=== PATIENT | male | born 1965 | race Caucasian/White ===

== ENCOUNTER → 2020-01-25 09:10 | Outpatient (BNVA) | payer SELFPAY | PROVIDERS: Visit Provider Nurse Practitioner Family | DX: Z11.59 Encounter for screening for other viral diseases (principal) | CPT/HCPCS: 87635 ==

== ENCOUNTER 2021-04-15 10:58 | Outpatient (CLI) | payer BC, SELFPAY ==
--- NOTE | 2021-04-15 11:22 | XR_ITS ---
WS: [email or web address] Exam: XR sacroiliac jts m 3V [id number] Date/Time of Exam: 04/15/2021 11:23 AM Reason For Exam: L40.9 - Psoriasis, unspecified No fracture or dislocation. 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 The SI joints are open. XR/XR sacroiliac jts m 3V [id number] IMPRESSION: 1. Mild bilateral SI joint DJD.
--- NOTE | 2021-04-15 11:22 | XR_ITS ---
WS: [email or web address] Exam: XR foot LT 2V [id number] Date/Time of Exam: 04/15/2021 11:23 AM Reason For Exam: M25.50 - Pain in unspecified joint No fracture or dislocation. Mild degenerative changes in the midfoot joints and IP joints. No soft ti ssue foreign bodies. Prominent calcaneal spurs. Vascular calcifications about the foot and ankle. XR/XR foot LT 2V [id number] IMPRESSION: 1. Mild degenerative changes and calcaneal spurs. 2. No fracture or dislocation.
--- NOTE | 2021-04-15 11:22 | XR_ITS ---
WS: [email or web address] Exam: XR foot RT 2V [id number] Date/Time of Exam: 04/15/2021 11:23 AM Reason For Exam: M25.50 - Pain in unspecified joint No acute fracture or dislocation. Mild degenerative changes in the IP joints and midfoot joints. Larg e Achilles tendon posterior heel spur and small plantar heel spur. No soft tissue foreign bodies. Vascular calcifications about the ankle and foot. XR/XR foot RT 2V [id number] IMPRESSION: 1. Degenerative changes and calcaneal spurs. 2. No fracture or dislocation.
--- NOTE | 2021-04-15 11:22 | XR_ITS ---
WS: [email or web address] Exam: XR lumbar spine 2-3V* [id number] Date/Time of Exam: 04/15/2021 11:23 AM Reason For Exam: M25.50 - Pain in unspecified joint No fracture or dislocation. Disc spaces are relatively well maintained. Mild spondylosis. Mild facet DJD. SI joint DJD. A 2.9 cm laminated calcification seen in the upper right quadrant of the abdomen m ay represent a large gallstone. XR/XR lumbar spine 2-3V* [id number] IMPRESSION: 1. Mild to moderate degenerative changes of the lower lumbar spine. 2. No fracture or malalignment. 3. 2.9 cm laminated calcification in the upper right quadrant of the abdomen th at might represent a large gallstone. 2 additional smaller calcifications are s een somewhat more superior and lateral.
--- NOTE | 2021-04-15 11:22 | XR_ITS ---
WS: [email or web address] Exam: XR hand RT 2V [id number] Date/Time of Exam: 04/15/2021 11:23 AM Reason For Exam: M25.50 - Pain in unspecified joint No fracture or dislocation. Very minimal DJD of the IP joints. No soft tissue foreign bodies. XR/XR hand RT 2V [id number] IMPRESSION: 1. Minimal degenerative change. 2. No fracture.
--- NOTE | 2021-04-15 11:22 | XR_ITS ---
WS: [email or web address] Exam: XR hand LT 2V [id number] Date/Time of Exam: 04/15/2021 11:23 AM Reason For Exam: M25.50 - Pain in unspecified joint No fracture or dislocation. Very minimal DJD of the IP joints. A single small screw is seen in the do rsal margin of the proximal aspect of the middle phalanx of the index finger. There is associated sof t tissue swelling at this site. Remaining soft tissues are unremarkable. XR/XR hand LT 2V [id number] IMPRESSION: 1. Minimal degenerative changes in the IP joints. 2. Small metallic screw seen in the proximal aspect of the middle phalanx of th e index finger with associated soft tissue swelling.
[2021-04-15 12:32] LABS: Erythrocyte Sedimentation Rate 57 mm/hr (0-10)
[2021-04-15 12:42] LABS: C Reactive Protein 19.8 mg/L (0.0-4.9); Creatine Phosphokinase 103 U/L (39-308)
[2021-04-15 12:58] LABS: 25 Hydroxy Vitamin D 21 ng/mL (30-100)
[2021-04-15 13:02] LABS: Hepatitis B Core AB, Total Non-Reactive (Nonreactive); Hepatitis B Surface Antigen Non-Reactive (Nonreactive); Hepatitis C Virus Antibody Non-Reactive (Nonreactive)
[2021-04-18 14:19] LABS: Cyclic Citrullinated Peptide <16 UNITS
[2021-04-18 15:23] LABS: ANA SCREEN, IFA NEGATIVE (NEGATIVE)
[2021-04-19 15:23] LABS: CENTROMERE B ANTIBODY <1.0 NEG AI (<1.0 NEG); JO-1 ANTIBODY <1.0 NEG AI (<1.0 NEG); RNP ANTIBODY <1.0 NEG AI (<1.0 NEG); SCL-70 ANTIBODY <1.0 NEG AI (<1.0 NEG); SJOGREN'S ANTIBODY (SS-A) <1.0 NEG AI (<1.0 NEG); SM ANTIBODY <1.0 NEG AI (<1.0 NEG); SS-B <1.0 NEG AI (<1.0 NEG)
[2021-04-20 10:27] LABS: DNA AB (DS) CRITHIDIA,IFA NEGATIVE (NEGATIVE)
[2021-04-20 15:42] LABS: THYROID PEROXIDASE ANTIBODIES 2 IU/mL (<9)
== END 2021-04-15 10:59 | disposition home or self-care (01) ==
PROVIDERS: PCP Nurse Practitioner Family; Visit Provider Internal Medicine
DX: M25.50 Pain in unspecified joint (principal); L40.9 Psoriasis, unspecified; M77.32 Calcaneal spur, left foot; M77.31 Calcaneal spur, right foot; Z98.890 Other specified postprocedural states; K82.8 Other specified diseases of gallbladder; M46.1 Sacroiliitis, not elsewhere classified
CPT/HCPCS: 36415; 72100; 72202; 73120; 73620; 82306; 82550; 85651; 86140; 86160; 86162; 86200; 86235; 86255; 86376; 86704; 86803; 87340

== ENCOUNTER → 2021-07-29 10:24 | Outpatient (BNVA) | payer BC, SELFPAY | PROVIDERS: PCP Nurse Practitioner Family; Visit Provider Internal Medicine | DX: R79.89 Other specified abnormal findings of blood chemistry (principal); M54.50 Low back pain, unspecified; R79.82 Elevated C-reactive protein (CRP); M25.50 Pain in unspecified joint; Z79.899 Other long term (current) drug therapy; K80.20 Calculus of gallbladder without cholecystitis without obstruction; L60.9 Nail disorder, unspecified | CPT/HCPCS: 80053; 82728; 83516; 83540; 85025; 85651; 86140 ==

== ENCOUNTER 2021-08-04 05:51 | Day surgery (SDC) | payer BC, SELFPAY ==
[2021-08-02 10:23] VITALS: BMI 32.7
[2021-08-04 06:10] VITALS: BP 155/96; PULSE 75; RESP 18; TEMP 36.1; O2SAT 95
--- NOTE | 2021-08-04 06:36 | P.HP_ITS ---
Same Day Surgery H&P Indication for Procedure/HPI DATE OF PROCEDURE: August 04, 2021 CHIEF COMPLAINT/INDICATIONFOR SURGICAL PROCEDURE: Screening colonoscopy PREOP DIAGNOSIS: Screening colonoscopy PLANNED PROCEDURE: Operation Date: 08/04/21 07:00 Proposed Procedures p Colonoscopy 53592 / Z12.11 encounter for screening for malignant neiplasm(Not Applicable) - Kermit Disla MD This is a pleasant 55 referred to my practice for screening colonoscopy, never had a screening colonoscopy before and he denies any blood in stool or colon cancer. ROS All systems have been reviewed negative except as for the above or per problem list. Medications/Allergies* Home Medications Medication Instructions Recorded Confirmed Type glipizide 10 mg tablet 10 mg PO BID 01/24/20 08/02/21 History metformin 1,000 mg tablet 1,000 mg PO BID 01/24/20 08/02/21 History dapagliflozin 10 mg tablet 10 mg PO DAILY 04/15/21 08/02/21 History (Farxiga) lisinopril 20 mg tablet 20 mg PO DAILY 04/15/21 08/02/21 History Allergies/Adverse Reactions Allergy/AdvReac Type Severity Reaction Status Date / Time No Known Allergies Allergy Verified 08/04/21 06:37 Pertinent History/Comorbid Conditions* Family History (Updated 04/15/21 @ 09:59 by Alexandra Reyes LPN) Rheumatoid arthritis Unknown Diabetes Father Brother CAD (coronary artery disease) Mother Heart attack Mother Grandfather Hypertension Mother Stroke Mother Denies family history of Lupus Dementia Hyperlipidemia Social History Smoking and tobacco status: never smoked Alcohol intake: never History of recent travel: No Pertinent Exam Findings alert, oriented x 3, clear to auscultation bilaterally, regular rate & rhythm and procedure specific exam findings (Abdominal examination nontender nondistended soft) Recommendations Surgery/Procedure today (Screening colonoscopy) Other Plans: Plan of care; After thorough history and physical examination and reviewing the chart, plan to perform screening colonoscopy. I discussed with the patient in details the risks,benefits,alternatives and indications.The risk of aspiration, bleeding, soft tissue injury, perforation of the colon and other potential concomitant complications were explained to the patient in details,also the potential need for Laproscoy/Laparotomy to repair any related complications including but not limited to colectomy and or Closotomy.The patient understood this well and did agree to proceed. Rationale was carefully and clearly discussed with the patient.Appropriate informed consent have been reviewed and signed All questions have been answered and all concerns have been addressed to patient's satisfaction. Verbal and written Instructions were given to the patient for colonoscopy prep Coding Level of Care Code Acute Labor Relations Director for Jessica Perrin
[2021-08-04] MEDS: sodium chloride 0.9% 1,000 ML 30 ML IV (06:37)
--- NOTE | 2021-08-04 06:41 | ANES.PREANE2 ---
Documented by User: Chelly Ybarra CRNA 08/04/21 06:42 Pre-Anesthetic Assessment Height/Weight: Height 1.88 m Weight 115.666 kg Temp Pulse Resp BP Pulse Ox 97 F L 75 18 155/96 95 08/04/21 06:10 08/04/21 06:10 08/04/21 06:10 08/04/21 06:10 08/04/21 06:10 Preop Diagnosis: Screening colonoscopy Operation Date: 08/04/21 07:00 Proposed Procedures p Colonoscopy 45303 / Z12.11 encounter for screening for malignant neiplasm(Not Applicable) - Kermit Disla MD Familial anesthetic complications: none Was Beta Richa taken within 24 hours: N/A Was Clonidine taken within 24 hours: N/A Last intake: Intake Last Liquid Date 08/03/21 Last Liquid Time 21:00 Last Solid Date 08/02/21 Last Solid Time 20:00 Social No alcohol and No tobacco Exam alert, oriented x 3, clear to auscultation bilaterally and regular rate & rhythm Airway Submandibular: within normal limits Cervical ROM: within normal limits Dentition: full History/ROS No significant history except as noted CV/HEM Hypertension Anesthetic Plan ASA status: 2 Anesthesia: Anesthesia Evaluation and MAC Risk of > 500 ml blood loss (7ml/kg in children): No Medications/Allergies Home Medications Medication Instructions Recorded Confirmed Last Taken Type glipizide 10 mg tablet 10 mg PO BID 01/24/20 08/02/21 08/03/21 History metformin 1,000 mg tablet 1,000 mg PO BID 01/24/20 08/02/21 08/03/21 History dapagliflozin 10 mg tablet 10 mg PO DAILY 04/15/21 08/02/21 08/03/21 History (Farxiga) lisinopril 20 mg tablet 20 mg PO DAILY 04/15/21 08/02/21 08/03/21 History cholecalciferol (vitamin D3) 1,250 50,000 unit PO .qweek #14 cap 05/13/21 08/04/21 07/29/21 Rx mcg (50,000 unit) capsule prednisone 5 mg tablet See Rx Instructions PO DAILY #60 05/13/21 08/02/21 08/03/21 Rx tab Allergies Allergy/AdvReac Type Severity Reaction Status Date / Time No Known Allergies Allergy Verified 08/04/21 06:37 Current Medications Generic Name Dose Route Start Last Admin Trade Name Lex PRN Reason Stop Dose Admin Sodium Chloride 1,000 mls @ 30 mls/hr 08/04/21 06:00 08/04/21 06:37 Sodium Chloride 0.9% IV 08/05/21 05:59 30 mls/hr .Q24H MICHOACANO Administration PFSH Anesthesia Family History (Updated 04/15/21 @ 09:59 by Alexandra Reyes LPN) Mother Hypertension Stroke CAD (coronary artery disease) Heart attack Father Diabetes Brother Diabetes Grandfather Heart attack Unknown Rheumatoid arthritis Denies family history of Lupus Dementia Hyperlipidemia Social History Smoking and tobacco status: never smoked Alcohol intake: never History of recent travel: No Data Anesthesia Cardiac Studies: No Data to Display
--- NOTE | 2021-08-04 07:20 | ANE.PACU2 ---
Documented by User: Chelly Ybarra CRNA 08/04/21 07:21 Inpatient post-anesthesia follow up: Airway intact: Yes Vital signs: Temperature 97 F Pulse Rate 75 Respiratory Rate 18 Blood Pressure 155/96 Pulse Oximetry 95 Oxygen Delivery Me thod Room Air Oxygen Flow Rate Fraction of Inspir ed Oxygen Hydration adequate: Yes Nausea and vomiting: No Pain level: 1 Mental status: Baseline
[2021-08-04 07:30] VITALS: BP 135/81; PULSE 69; RESP 18; O2SAT 92
== END 2021-08-04 07:32 | disposition home or self-care (01) ==
PROVIDERS: PCP Nurse Practitioner Family; Visit Provider Surgery
PROC: 0DJD8ZZ Inspection of Lower Intestinal Tract, Via Natural or Artificial Opening Endoscopic (ICD-10-PCS; CPT 45378; principal; 2021-08-04 07:00)
DX: Z12.11 Encounter for screening for malignant neoplasm of colon (principal); D12.2 Benign neoplasm of ascending colon; K57.30 Diverticulosis of large intestine without perforation or abscess without bleeding; I10 Essential (primary) hypertension
CPT/HCPCS: 45385; 88305; J2704; J7030

== ENCOUNTER → 2021-12-09 11:33 | Outpatient (BNVA) | payer BC, SELFPAY | PROVIDERS: PCP Nurse Practitioner Family; Visit Provider Internal Medicine | DX: M25.50 Pain in unspecified joint (principal); R79.82 Elevated C-reactive protein (CRP); Z79.899 Other long term (current) drug therapy; M54.50 Low back pain, unspecified; R79.89 Other specified abnormal findings of blood chemistry | CPT/HCPCS: 80053; 85025; 85651; 86140 ==

== ENCOUNTER → 2022-05-15 08:59 | Outpatient (BNVA) | payer BC, SELFPAY | PROVIDERS: PCP Nurse Practitioner Family; Visit Provider Nurse Practitioner Family | DX: M25.551 Pain in right hip (principal) | CPT/HCPCS: 73502 ==

== ENCOUNTER 2022-05-20 07:14 | Emergency (ER) | payer BC, SELFPAY ==
[2022-05-20 07:23] VITALS: BP 178/81; PULSE 95; TEMP 36.7; O2SAT 95; BMI 33.9
--- NOTE | 2022-05-20 07:39 | XRR_ITS ---
PROCEDURE INFORMATION: Exam: XR Chest Exam date and time: 05/20/2022 7:47 AM Age: 56 years old Clinical indication: Dyspnea TECHNIQUE: Imaging protocol: Radiologic exam of the chest. Views: 1 view. Total images: 911 COMPARISON: No relevant prior studies available. FINDINGS: Lungs: Unremarkable. No consolidation. Pleural spaces: There is blunting of the right costophrenic angle, likely indicating a small pleural effusion versus chronic pleural thickening. Heart/Mediastinum: Upper normal heart size noted. Bones/joints: Unremarkable. XR/XR chest 1V portable [id number] IMPRESSION: There is blunting of the right costophrenic angle, likely indicating a small pleural effusion versus chronic pleural thickening.
--- NOTE | 2022-05-20 07:40 | ECG_ITS ---
[facility] Test Date: 2022-05-20 Pat Name: Luigi Henriquez Department: Room: Gender: Male Terrazzo Roller: : 1965 Requested By: Derick Andujar Order Number: [id number] Zoraida MD: Ketan Fontenot M.D. Measurements Intervals [place] Rate: 96 P: 53 CO: 146 QRS: 50 QRSD: 80 T: 89 QT: 348 QTc: 441 Interpretive Statements SINUS RHYTHM NONSPECIFIC T-WAVE ABNORMALITY No previous ECG available for comparison Electronically Signed On 05-20-2022 12:14:49 COOKER SYRUP by Ketan Fontenot M.D. [id number]
--- NOTE | 2022-05-20 07:47 | W.ED.SOB ---
HPI - SOB/Dyspnea General: Chief Complaint: Shortness of Breath/Dyspnea Stated Complaint: Abnormal Labs, SOB Time Seen by Provider: 05/20/22 07:23 Source: patient Mode of arrival: ambulatory Limitations: no limitations History of Present Illness: HPI Narrative: 56-year-old male non-smoker with a history of inflammatory arthritis, diabetes, hypertension who presents to the emergency department for gradual worsening of shortness of breath over the last week or 2. He does endorse dyspnea with minimal exertion as well as orthopnea. He is not diagnosed with any congestive heart failure, coronary artery disease, pulmonary embolism, pulmonary fibrosis, COPD or asthma, or other cardiopulmonary disease. He reports that he went to his doctor earlier in the week and they have scheduled him for AN echocardiogram. They advised him if he felt like he was getting worse to come into the emergency department. Patient reports he is now winded just tying his shoes. He denies any fever, hemoptysis, lower extremity swelling, chest pain. He does have pain in his left shoulder blade region which feels like a muscle cramp. He does have a family history of coronary artery disease. He has not recently had any stress test or angiography. No fever, chills, nausea, vomiting, diaphoresis, palpitations. Associated symptoms: Deny abdominal pain, chest congestion, chest pain, extremity pain, fever(s), hemoptysis, nausea, syncope or vomiting Review of Systems General: Reports: 10 or more systems reviewed and unremarkable except in HPI and below Const: Reports: fatigue; Denies: fever(s), chills or body aches Eyes: Denies: change in vision ENMT: Denies: throat pain Card: Denies: chest pain, edema or syncope Resp: Reports: dyspnea; Denies: productive cough, wheezing, stridor, pain on inspiration, hemoptysis or chest congestion GI: Denies: abdominal pain, nausea, vomiting or diarrhea : Denies: flank pain, dysuria or urinary frequency Musc: Denies: neck pain, back pain, extremity pain or extremity swelling Skin/Breast: Denies: rash or erythema Neuro: Denies: headache(s), numbness in extremities, weakness in extremities, lack of coordination or difficulty walking [facility] ED PFSH: Family History Mother Hypertension Stroke CAD (coronary artery disease) Heart attack Father Diabetes Brother Diabetes Grandfather Heart attack Unknown Rheumatoid arthritis Denies family history of Lupus Dementia Hyperlipidemia Social History Smoking and tobacco status: never smoked Alcohol intake: never Physical Exam Const: COMMON NORMALS: no limitations, alert and well nourished EXAM LIMITATIONS: no altered mental status and no behavioral limitations NUTRITIONAL APPEARANCE: obese HENMT: COMMON NORMALS: normocephalic, atraumatic and external ears normal HEAD & SCALP: normocephalic and atraumatic EXTERNAL EAR: Yes external ears normal MOUTH: no muffled voice Eye: COMMON NORMALS: EOMs intact bilaterally, conjunctivae normal and no scleral icterus CONJUNCTIVA: Yes conjunctivae normal Neck/C-Spine: COMMON NORMALS: no JVD GENERAL: Yes normal visual inspection and Yes trachea midline Resp: COMMON NORMALS: No retractions and clear to auscultation bilaterally EFFORT & INSPECTION: Yes able to speak in complete sentences, Yes tachypneic, Yes respiratory distress (Mild), No retractions, No uses accessory muscles, No audible wheezes, No tracheal deviation and No tripod positioning AUSCULTATION: clear to auscultation bilaterally, no crackles and no rales Cardio: COMMON NORMALS: no JVD, regular rate and regular rhythm; negative for No murmurs present (Cardio) (Murmur is present, loudest at the right sternal border) RATE: regular rate RHYTHM: regular rhythm GI: COMMON NORMALS: Soft to palpation and non-tender PALPATION: Yes Soft to palpation and No Guarding due to palpation present (GI) Extremity: COMMON NORMALS: normal to inspection Neuro: COMMON NORMALS: moves all extremities, no focal motor deficits and no sensory deficits noted SENSORIUM/ORIENTATION: Yes alert SPEECH: speech normal Psych: COMMON NORMALS: mental status grossly normal, Normal thought process present, cooperative, normal affect and speech normal SPEECH: Yes normal speech THOUGHT PROCESS: Normal thought process present Skin: COMMON NORMALS: no rashes or lesions noted, turgor normal and no jaundice GENERAL SKIN EXAM: no rashes or lesions noted and turgor normal Course Vital Signs: Vital signs: Vital Signs Temperature 98.1 F 05/20/22 07:23 Pulse Rate 87 05/20/22 09:29 Respiratory Rate 26 H 05/20/22 09:29 Blood Pressure 162/82 05/20/22 09:29 Pulse Oximetry 93 05/20/22 09:29 Oxygen Delivery Me thod 05/20/22 08:54 MDM - SOB/Dyspnea Medical Decision Making 56-year-old male presents the emergency department with shortness of breath. He is noted to be hypertensive and tachypneic. His oxygen saturation is around 94% on room air. His lungs are clear to auscultation. There is a large differential diagnosis but I suspect with the presence of a murmur, family history, orthopnea, hypertension, and gradual onset that the patient has some form of congestive heart failure. He looks like he would be a set up for obstructive sleep apnea and this alone could drive up his pulmonary artery pressures. He is already taken his lisinopril this morning but remains hypertensive. Patient will get 1 inch of nitroglycerin paste on his chest and 10 mg of IV hydralazine to decrease preload. He does not have any obvious lower extremity edema but he has thin shiny skin of both lower extremities with a very disproportionate amount of abdominal obesity. Pulmonary embolism is possible but seems less likely. D-dimer has been ordered. Acute coronary syndrome or ischemic coronary artery disease remains on the differential diagnosis. UPDATE: [id number] I'm discussing the patient's abnormal CT chest findings with Dr Corea, Oncology. We discussed presentation. He's reviewing the CT scan. He reports that he will speak with Dr Rainey (human factors specialist) to figure out if how they can get tissue diagnosis/biopsy and then plan care. Patient isn't requiring oxygen or admission I did discuss the case with patient. He is aware of the CT findings (multiple). He's aware this is likely cancer. He's aware he needs tissue diagnosis. He's aware Dr Corea/Brigid are going to consult on case. He does not want any pain medication beyond nsaids/tylenol. He is being prescribed hydralazine to use prn for htn at home. Lab Data 05/20/22 07:40 05/20/22 07:40 Labs/Radiology: Radiology Impressions Chest X-Ray 05/20/22 07:39 IMPRESSION: There is blunting of the right costophrenic angle, likely indicating a small pleural effusion versus chronic pleural thickening. Chest CTA 05/20/22 08:21 IMPRESSION: 1. 6.1 cm indeterminate mass of the right adrenal gland. Nonemergent unenhanced CT or MR abdomen could further evaluate. Given additional findings within the chest, findings concerning for neoplasm/metastatic disease. 2. Small right pleural effusion with compressive atelectasis. 3. No pulmonary artery embolism identified. 4. Multiple bilateral pulmonary nodules with the largest posteriorly at the right lung base series 7, image 374 measuring 10 mm concerning for pulmonary metastases. 5. Cardiomegaly with pulmonary vascular congestion. 6. Expansile destructive right 3rd rib mass with large soft tissue component measuring 5.3 x 5.2 x 6.6 cm concerning for neoplasm/metastatic deposit. No additional osseous lesions detected. Finding accounts for density in right superior pleural space on chest x-ray. 7. Multiple mildly prominent mediastinal lymph nodes. The largest is in the right paratracheal space measured at 11 mm in short axis diameter. 8. Cholelithiasis is present without cholecystitis. No gallbladder wall thickening or pericholecystic fluid collection. Laboratory Results WBC 8.5 10^3/uL (4.0-10.0) 05/20/22 07:40 RBC 5.18 10^6/uL (4.1-5.3) 05/20/22 07:40 Hgb 13.5 g/dL (11.7-16.6) 05/20/22 07:40 Hct 42.7 % (42.0-52.0) 05/20/22 07:40 MCV 82.4 fl (80-94) 05/20/22 07:40 MCH 26.1 pg (28.0-34.0) L 05/20/22 07:40 MCHC 31.6 g/dL (30.0-36.0) 05/20/22 07:40 RDW 15.0 % (12.1-15.1) 05/20/22 07:40 Plt Count 195 10^3/cmm (130-400) 05/20/22 07:40 MPV 11.1 fL (7.4-10.4) H 05/20/22 07:40 Neut % (Auto) 70.3 % 05/20/22 07:40 Lymph % (Auto) 17.3 % 05/20/22 07:40 [place] % (Auto) 9.0 % 05/20/22 07:40 Eos % (Auto) 2.7 % 05/20/22 07:40 Baso % (Auto) 0.5 % 05/20/22 07:40 Neut # (Auto) 6.00 10^3/uL (1.8-7.7) 05/20/22 07:40 Lymph # (Auto) 1.5 10^3/uL (0.8-4.8) 05/20/22 07:40 [place] # (Auto) 0.8 10^3/uL (0.2-0.9) 05/20/22 07:40 Eos # (Auto) 0.2 10^3/uL (0.0-0.8) 05/20/22 07:40 Baso # (Auto) 0.0 10^3/uL (0.0-0.1) 05/20/22 07:40 Nucleated RBC % (auto) 0 % 05/20/22 07:40 Nucleated RBCs # 0.0 /100WBC 05/20/22 07:40 D-Dimer 1.19 ug/mIFEU (0-0.59) H 05/20/22 07:40 Sodium 136 mmol/L (136-145) 05/20/22 07:40 Potassium 3.9 mmol/L (3.5-5.1) 05/20/22 07:40 Chloride 100 mmol/L (98-107) 05/20/22 07:40 Carbon Dioxide 24 mmol/L (22-29) 05/20/22 07:40 Anion Gap 15.9 (5-19) 05/20/22 07:40 BUN 14 mg/dL (6-20) 05/20/22 07:40 Creatinine 0.7 mg/dL (0.7-1.2) 05/20/22 07:40 GFR Calculation 115.8 mL/min (90-130) 05/20/22 07:40 Glucose 211 mg/dL (65-115) H 05/20/22 07:40 Calculated Osmolality 289 mOsm/kg (285-295) 05/20/22 07:40 Calcium 9.3 mg/dL (8.5-10.5) 05/20/22 07:40 Magnesium 2.0 mg/dL (1.7-2.3) 05/20/22 07:40 Total Bilirubin 0.8 mg/dL (0.15-1.2) 05/20/22 07:40 AST 32 U/L (0-40) 05/20/22 07:40 ALT 23 U/L (0-41) 05/20/22 07:40 Alkaline Phosphatase 127 U/L (40-130) 05/20/22 07:40 Troponin T Baseline 15 ng/L (0-15) 05/20/22 07:40 NT-Pro-B Natriuret Pep 449 pg/mL (0-125) H 05/20/22 07:40 Total Protein 7.1 g/dL (6.6-8.7) 05/20/22 07:40 Albumin 4.0 g/dL (3.5-5.2) 05/20/22 07:40 Globulin 3.1 g/dL (1.3-4.6) 05/20/22 07:40 Imaging Data CXR: My impression: mild cardiomegaly, right costophrenic angle is not seen sharply--could be pleural thickening, effusion, other. No consolidations. No sig pulm edema. No suspicious adenopathy noted. CT Chest: Radiologist's impression: Multiple bilateral pulmonary nodules with the largest posteriorly at the right lung base series 7, image 374 measuring 10 mm concerning for pulmonary metastases. Pleural spaces: Small right pleural effusion. Heart: Cardiomegaly. Lymph nodes: Multiple mildly prominent mediastinal lymph nodes. The largest is in the right paratracheal space measured at 11 mm in short axis diameter. Gallbladder and bile ducts: Cholelithiasis is present without cholecystitis. No gallbladder wall thickening or pericholecystic fluid collection. Adrenal glands: 6.1 cm indeterminate mass of the right adrenal gland. Bones/joints: Mild degenerative changes of the right shoulder are noted. Spinal degenerative changes are evident. Expansile destructive right 3rd rib mass with large soft tissue component measuring 5.3 x 5.2 x 6.6 cm concerning for neoplasm/metastatic deposit. No additional osseous lesions detected. Finding accounts for density in right superior pleural space on chest x-ray. EKG Data EKG 1: Interpretation: Sinus rhythm, rate 96, normal axis, normal intervals, no concerning ST segment elevations or depressions, possible mild left atrial enlargement. Discharge Plan Discharge Patient Disposition: Home Clinical Impression: Tumor, Adrenal mass, Acute dyspnea, Heart murmur, Pleural effusion, Hilar adenopathy, Accelerated hypertension Condition: Stable Prescriptions: New hydralazine 50 mg tablet 50 mg PO TID PRN (Reason: hypertension) Qty: 30 0RF Rx Instructions: Take up to three times daily as needed for Systolic blood pressure >150mmHg Continued Farxiga 10 mg tablet 10 mg PO DAILY lisinopril 20 mg tablet 20 mg PO DAILY metformin 1,000 mg tablet 1,000 mg PO BID glipizide 10 mg tablet 10 mg PO BID cholecalciferol (vitamin D3) 1,250 mcg (50,000 unit) capsule 50,000 unit PO .qweek Qty: 14 0RF albuterol sulfate 2.5 mg/0.5 mL solution for nebulization 2.5 mg inhalation ONCE Qty: 1 0RF albuterol sulfate 90 mcg/actuation HFA aerosol inhaler 2 puff inhalation Q6H Qty: 8.5 0RF Rx Instructions: 2 puffs inhaled every 6 hours as needed diclofenac sodium 1 % gel 2 g topical QID Qty: 100 2RF Rx Instructions: apply to affected area as needed folic acid 1 mg tablet 1 mg PO DAILY Qty: 30 3RF Discontinued azithromycin 250 mg tablet See Rx Instructions PO .COMPLEX Qty: 6 0RF Rx Instructions: For 250 mg dose pack: take 500 mg today (day 1), then 250 mg for 4 days (days 2-5) PO methotrexate sodium 2.5 mg tablet 10 mg PO .Q7days Qty: 20 1RF Rx Instructions: take 4 tabs on same day once a week. Discharge Orders: Discharge ED (Routine); Ordered 05/20/22 Ordered By: Derick Andujar Referrals: CarlitorMontez MD [Physician] - 4-7 days (Needs tissue biopsy, may need directional bronch. Please discuss with Dr Corea) Rigoberto Corea MD [Hospitalist] - 1-3 days (New tumor, pulm nodule, adrenal mass) Deysi Florez [Primary Care Provider] - 4-7 days (Mr Henriquez is found to have tumor, adenopathy, pulmonary nodules, adrenal mass. F/u Dr Corea) Discharge Diet: Advance as tolerated Discharge Activity: Resume usual activity Patient Instructions: Shortness of Breath (ED), Cancer Staging and Grading Activity Restrictions/Additional Instructions: Return if worsening, coughing up blood, severe fatigue, low or high blood pressure, oxygen level less than 92% at rest. Call Dr Corea on Sunday afternoon if you haven't heard from him. Please call your primary care doctor and let them know what we found. I have sent a copy of your chart. Coding Level of Care Code ED Occupational Therapist Assistants for Jessica Perrin
[2022-05-20 07:51] LABS: Basophils % 0.5 %; Eosinophils # 0.2 10^3/uL (0.0-0.8); Eosinophils % 2.7 %; Hematocrit 42.7 % (42.0-52.0); Hemoglobin 13.5 g/dL (11.7-16.6); Lymphocytes # 1.5 10^3/uL (0.8-4.8); Lymphocytes % 17.3 %; Mean Corpuscular HGB Conc 31.6 g/dL (30.0-36.0); Mean Corpuscular Hemoglobin 26.1 pg (28.0-34.0); Mean Corpuscular Volume 82.4 fl (80-94); Mean Platelet Volume 11.1 fL (7.4-10.4); Monocytes # 0.8 10^3/uL (0.2-0.9); Neutrophils % 70.3 %; Nucleated Red Blood Cells % 0 %; Platelet Count 195 10^3/cmm (130-400); Red Blood Count 5.18 10^6/uL (4.1-5.3); White Blood Count 8.5 10^3/uL (4.0-10.0)
[2022-05-20] MEDS: hyDRALAzine 20 mg/mL INJ 1 mL 10 MG IVP (07:53)
[2022-05-20] MEDS: nitroglycerin 1 gm/inch oint Pkt 1 INCH TOPICAL (07:54)
[2022-05-20 07:59] VITALS: BP 180/84; PULSE 92; RESP 25; O2SAT 93
[2022-05-20 08:05] LABS: D Dimer 1.19 ug/mIFEU (0-0.59)
[2022-05-20 08:14] LABS: Troponin(5th) Baseline 15 ng/L (0-15)
--- NOTE | 2022-05-20 08:21 | CTR_ITS ---
PROCEDURE INFORMATION: Exam: CTA Chest With Contrast Exam date and time: 05/20/2022 8:35 AM Age: 56 years old Clinical indication: Other: Left thoracic back pain, shortness of breath, elevated d dim TECHNIQUE: Imaging protocol: Computed tomographic angiography of the chest with contrast. 3D rendering (Not supervised by radiologist): MIP and/or 3D reconstructed images were created by the technologist. Total images: 0 Radiation optimization: All CT scans at this facility use at least one of these dose optimization techniques: automated exposure control; mA and/or kV adjustment per patient size (includes targeted exams where dose is matched to clinical indication); or iterative reconstruction. Contrast material: OMNI 350; Contrast volume: 100 ml; Contrast route: INTRAVENOUS (IV); REPORTING DATA: Count of CT and Cardiac NM exams in prior 12 months: This patient has received 0 known CTs and 0 known cardiac nuclear medicine studies in the 12 months prior to the current study. COMPARISON: CR (CHEST, ) 05/20/2022 7:47 AM RADIATION DOSE METRICS: Total DLP (mGy-cm): 559.92 FINDINGS: Pulmonary arteries: Pulmonary artery evaluation of good technical quality with no pulmonary artery embolism identified. Pulmonary vascular congestion. Aorta: Unremarkable. No aortic aneurysm. No aortic dissection. Thyroid: There is diffuse enlargement of the thyroid gland, most likely due to goiter. Lungs: Compressive atelectasis of the right lung base. Multiple bilateral pulmonary nodules with the largest posteriorly at the right lung base series 7, image 374 measuring 10 mm concerning for pulmonary metastases. Pleural spaces: Small right pleural effusion. Heart: Cardiomegaly. Lymph nodes: Multiple mildly prominent mediastinal lymph nodes. The largest is in the right paratracheal space measured at 11 mm in short axis diameter. Gallbladder and bile ducts: Cholelithiasis is present without cholecystitis. No gallbladder wall thickening or pericholecystic fluid collection. Adrenal glands: 6.1 cm indeterminate mass of the right adrenal gland. Bones/joints: Mild degenerative changes of the right shoulder are noted. Spinal degenerative changes are evident. Expansile destructive right 3rd rib mass with large soft tissue component measuring 5.3 x 5.2 x 6.6 cm concerning for neoplasm/metastatic deposit. No additional osseous lesions detected. Finding accounts for density in right superior pleural space on chest x-ray. Soft tissues: See Bones/joints finding. Other findings: Fleischner follow up recommendations for incidental nodules are not indicated. Follow up per patient's medical condition. CT/CT angio chest PE protcl [id number] IMPRESSION: 1. 6.1 cm indeterminate mass of the right adrenal gland. Nonemergent unenhanced CT or MR abdomen could further evaluate. Given additional findings within the chest, findings concerning for neoplasm/metastatic disease. 2. Small right pleural effusion with compressive atelectasis. 3. No pulmonary artery embolism identified. 4. Multiple bilateral pulmonary nodules with the largest posteriorly at the right lung base series 7, image 374 measuring 10 mm concerning for pulmonary metastases. 5. Cardiomegaly with pulmonary vascular congestion. 6. Expansile destructive right 3rd rib mass with large soft tissue component measuring 5.3 x 5.2 x 6.6 cm concerning for neoplasm/metastatic deposit. No additional osseous lesions detected. Finding accounts for density in right superior pleural space on chest x-ray. 7. Multiple mildly prominent mediastinal lymph nodes. The largest is in the right paratracheal space measured at 11 mm in short axis diameter. 8. Cholelithiasis is present without cholecystitis. No gallbladder wall thickening or pericholecystic fluid collection.
[2022-05-20 08:24] LABS: Alanine Aminotransferase 23 U/L (0-41); Alkaline Phosphatase 127 U/L (40-130); Aspartate Amino Transferase 32 U/L (0-40); Blood Urea Nitrogen 14 mg/dL (6-20); Calcium 9.3 mg/dL (8.5-10.5); Carbon Dioxide 24 mmol/L (22-29); Chloride 100 mmol/L (98-107); Globulin 3.1 g/dL (1.3-4.6); Glomerular Filtration Rate 115.8 mL/min (90-130); Glucose 211 mg/dL (65-115); NT Pro B Type Natriuretic Pept 449 pg/mL (0-125); Osmolality Calculated 289 mOsm/kg (285-295); Sodium 136 mmol/L (136-145); Total Bilirubin 0.8 mg/dL (0.15-1.2); Total Protein 7.1 g/dL (6.6-8.7)
[2022-05-20 08:26] LABS: Anion Gap 15.9 (5-19); Potassium 3.9 mmol/L (3.5-5.1)
[2022-05-20] MEDS: iohexol 350 mg/mL 500 mL Btl (per mL) IV (08:37)
[2022-05-20 08:54] VITALS: BP 171/82; PULSE 90; O2SAT 93
[2022-05-20 09:29] VITALS: BP 162/82; PULSE 87; RESP 26; O2SAT 93
--- NOTE | 2022-05-20 09:40 | ECG_ITS ---
[facility] Test Date: 2022-05-20 Pat Name: Luigi Henriquez Department: Room: Gender: Male Policy Adviser: : [id number] Requested By: Derick Andujar Order Number: [id number] Zoraida MD: Ketan Fontenot M.D. Measurements Intervals [place] Rate: 93 P: 53 IA: 148 QRS: 39 QRSD: 87 T: 78 QT: 359 QTc: 447 Interpretive Statements SINUS RHYTHM Compared to ECG 05/20/2022 07:35:27 T-wave abnormality no longer present Electronically Signed On 05-20-2022 12:18:20 TRANSIT WORKER by Ketan Fontenot M.D. [email or web address] private [id number]
[2022-05-20 10:09] VITALS: BP 168/81; PULSE 96; RESP 28; O2SAT 95
--- NOTE | 2022-05-23 10:48 | DCPLANNER ---
Addendum entered by Feli Johnson 06/02/22 07:57: Patient is to follow up with primary care. Original Note: facilities manager had message to refer patient to see Dr. Corea at [facility]. facilities manager spoke with Naomie, entry level project coordinator at the [facility]. facilities manager was told that patient would need to be referred to Dr. Iniguez for a biopsy. facilities manager sent patients information to the front office staff at [facility] for review. Patients information will be printed and reviewed. Clinic will call patient with appointment information.
== END 2022-05-20 10:11 | disposition home or self-care (01) ==
PROVIDERS: Emergency Provider Emergency Medicine; PCP Nurse Practitioner Family
DX: D49.7 Neoplasm of unspecified behavior of endocrine glands and other parts of nervous system (principal); R06.00 Dyspnea, unspecified; R01.1 Cardiac murmur, unspecified; R59.9 Enlarged lymph nodes, unspecified; I10 Essential (primary) hypertension; Z79.84 Long term (current) use of oral hypoglycemic drugs; J90 Pleural effusion, not elsewhere classified; K80.20 Calculus of gallbladder without cholecystitis without obstruction; I11.9 Hypertensive heart disease without heart failure
CPT/HCPCS: 71045; 71275; 80053; 83735; 83880; 84484; 85025; 85378; 93005; 96374; 99285; J0360; Q9967